=== PATIENT | female | born 1985 | race Two or more races ===

== ENCOUNTER 2022-09-21 09:22 | Observation (INO) | payer BC, OTHER ==
[~2022-09-21] VITALS: Ht 149 cm; Wt 59.9 kg
[2022-09-21 10:12] LABS: Basophils # (auto) 0 10 ^3/uL (0-0.2); Eosinophils # (auto) 0.2 10 ^3/uL (0-0.8); Hematocrit 32.6 % (36.0-46.0); Lymphocytes # (auto) 1.4 10 ^3/uL (0.4-5.4); Neutrophils # (auto) 4.6 10 ^3/uL (1.6-8.6); Red Blood Cells 4.11 10^6/uL (4.0-5.20)
[2022-09-21 10:15] LABS: Basophils % (auto) 0.4 % (0.0-2.0); Hemoglobin 10.5 g/dL (12.2-16.2); Lymphocytes % (auto) 21.2 % (10.0-50.0); Mean Corpuscular Hemoglobin 25.6 pg (28.0-32.0); Mean Corpuscular Hgb Conc. 32.2 g/dL (32.0-36.0); Mean Corpuscular Volume 79.3 fL (80.0-100.0); Monocytes # (auto) 0.4 10 ^3/uL (0-1.3); Monocytes % (auto) 5.6 % (0.0-12.0); Neutrophils % (auto) 69.8 % (37.0-80.0); Nucleated Red Blood Cells % 0.1 %; Red Cell Distribution Width 15.1 % (11.8-14.3); White Blood Cell 6.5 10^3/uL (4.4-10.8)
[2022-09-21 10:39] LABS: INR 0.83 (0.9-1.15); Partial Thromboplastin Time 25.2 sec (24.6-33.4); Potassium 3.5 mmol/L (3.5-5.1)
[2022-09-21 10:46] LABS: Albumin 2.6 g/dL (3.4-5.0); BUN/Creatinine Ratio 17.8; Bilirubin, Total 0.4 mg/dL (0.2-1.0); Calcium 8.4 mg/dL (8.5-10.1); Total Protein 7.1 g/dL (6.4-8.2); Uric Acid 3.6 mg/dL (2.6-6.0)
[2022-09-21 11:18] LABS: Urine Bacteria NONE SEEN /hpf (None Seen); Urine Blood Negative /uL (Negative); Urine Hyaline Cast FEW /lpf (0 - 2); Urine Specific Gravity 1.017 (1.001-1.035); Urine WBC 6 /hpf (0 - 5)
[2022-09-21] MEDS ORDERED: CEPH-322 PO (12:00)
[2022-09-21] MEDS ORDERED: PREN-96 PO (12:11)
== END 2022-09-21 12:40 | disposition home or self-care (01) ==
LOC: LDRP 09:22 → UNDOADMOB 09:22 → LDRP 09:48
PROVIDERS: ADMIT Obstetrics & Gynecology; ATTEND Obstetrics & Gynecology
DX: O26.613 Liver and biliary tract disorders in pregnancy, third trimester (principal); K83.1 Obstruction of bile duct; O62.9 Abnormality of forces of labor, unspecified; Z3A.34 34 weeks gestation of pregnancy
CPT/HCPCS: 36415; 59025; 76818; 80053; 81001; 81002; 82570; 84156; 84550; 85025; 85610; 85730; 94760; G0378

== ENCOUNTER 2022-09-24 09:48 | Observation (INO) | payer BC ==
[~2022-09-24] VITALS: Ht 149 cm; Wt 59.9 kg
[~2022-09-24 09:48] MED LIST: CEPH-322 PO; PREN-96 PO
[2022-09-24] MEDS ORDERED: URSOPOW XX (16:00)
== END 2022-09-24 16:54 | disposition home or self-care (01) ==
LOC: UNDOADMOB 14:45 → LDRP 14:45 → UNDODISOB 16:54
PROVIDERS: ADMIT Obstetrics & Gynecology; ATTEND Obstetrics & Gynecology
DX: O62.9 Abnormality of forces of labor, unspecified (principal); O26.893 Other specified pregnancy related conditions, third trimester; N89.8 Other specified noninflammatory disorders of vagina; Z3A.34 34 weeks gestation of pregnancy
CPT/HCPCS: 59025; 76818; 81002; 94760

== ENCOUNTER 2022-09-27 08:24 | Observation (INO) | payer BC ==
[~2022-09-27 08:24] MED LIST changes: +URSOPOW XX
== END 2022-09-27 16:32 | disposition home or self-care (01) ==
LOC: LDRP 15:30 → UNDOADMOB 15:32 → LDRP 15:32
PROVIDERS: ADMIT Obstetrics & Gynecology; ATTEND Obstetrics & Gynecology
DX: O26.613 Liver and biliary tract disorders in pregnancy, third trimester (principal); K83.1 Obstruction of bile duct; O62.9 Abnormality of forces of labor, unspecified; Z3A.34 34 weeks gestation of pregnancy
CPT/HCPCS: 59025; 76818; 81002; 94760; G0378

== ENCOUNTER 2022-10-04 14:14 | Observation (INO) | payer BC | END 2022-10-04 17:05 | disposition home or self-care (01) | LOC: UNDOADMOB 15:28 → LDRP 15:28 | PROVIDERS: ADMIT Obstetrics & Gynecology; ATTEND Obstetrics & Gynecology | DX: O26.613 Liver and biliary tract disorders in pregnancy, third trimester (principal); K83.1 Obstruction of bile duct; O99.891 Other specified diseases and conditions complicating pregnancy; M54.9 Dorsalgia, unspecified; O26.893 Other specified pregnancy related conditions, third trimester; R42 Dizziness and giddiness; Z3A.36 36 weeks gestation of pregnancy | CPT/HCPCS: 59025; 76818; 81002; 94760; G0378 ==

== ENCOUNTER 2022-10-11 06:45 | Inpatient (IN) | payer BC ==
[~2022-10-11] VITALS: Ht 154.9 cm; Wt 61.7 kg
[2022-10-11] MEDS ORDERED: PROMETHAZINE HCL 25 MG/ML 1ML IV PRN (07:15)
[2022-10-11] MEDS ORDERED: LACT. RINGERS/OXYTOCIN 20UNITS 500 ML IV ONE ×2 (07:15→07:45)
[2022-10-11] MEDS ORDERED: MORPHINE SULFATE INJ 2 MG/ml SYRG IV PRN (07:15)
[2022-10-11] MEDS ORDERED: PHISODERM TOP SOLN 240ML BTL TOP PRN (07:15)
[2022-10-11] MEDS ORDERED: WITCH HAZEL-GLYCERIN PAD TOP PRN (07:15)
[2022-10-11] MEDS ORDERED: PENICILLIN G POT 5MIL/D5 50ML 50 ML IV ONE (07:15)
[2022-10-11] MEDS ORDERED: LIDOCAINE 2%HCL (LOCAL ANESTH.) INJ 20ML MDV IJ PRN (07:15)
[2022-10-11] MEDS ORDERED: BUTORPHANOL TARTRATE 2 MG/1 ML VIAL IV PRN ×2 (07:15)
[2022-10-11] MEDS ORDERED: miSOPROStol 50 MCG per PRE-CUT 1/2 TAB PO PRN (07:15)
[2022-10-11] MEDS ORDERED: NITROGLYCERIN 0.4 MG SL TAB SL PRN (07:15)
[2022-10-11] MEDS ORDERED: LACTATED RINGER'S 1,000 ML IV SCH (07:15)
[2022-10-11] MEDS ORDERED: DERMOPLAST 60ML BOTTLE TOP PRN (07:15)
[2022-10-11 07:26] LABS: Basophils # (auto) 0 10 ^3/uL (0-0.2); Lymphocytes # (auto) 1.9 10 ^3/uL (0.4-5.4); Monocytes # (auto) 0.4 10 ^3/uL (0-1.3); Neutrophils # (auto) 5.1 10 ^3/uL (1.6-8.6); Neutrophils % (auto) 68.7 % (37.0-80.0); Nucleated Red Blood Cells % 0.2 %
[2022-10-11 07:27] LABS: Basophils % (auto) 0.2 % (0.0-2.0); Eosinophils # (auto) 0 10 ^3/uL (0-0.8); Eosinophils % (auto) 0.5 % (0.0-7.0); Hematocrit 29.9 % (36.0-46.0); Hemoglobin 9.9 g/dL (12.2-16.2); Lymphocytes % (auto) 25.5 % (10.0-50.0); Mean Corpuscular Volume 78.6 fL (80.0-100.0); Monocytes % (auto) 5.1 % (0.0-12.0); Red Cell Distribution Width 15.5 % (11.8-14.3); White Blood Cell 7.4 10^3/uL (4.4-10.8)
[2022-10-11 07:45] LABS: INR 0.82 (0.9-1.15); Partial Thromboplastin Time 25.9 sec (24.6-33.4)
[2022-10-11 07:52] LABS: Albumin 2.4 g/dL (3.4-5.0); Calcium 8.5 mg/dL (8.5-10.1); Potassium 3.7 mmol/L (3.5-5.1)
[2022-10-11 07:55] LABS: BUN/Creatinine Ratio 19.6 (10.0-20.0); Bilirubin, Total 0.2 mg/dL (0.2-1.0); Total Protein 7.1 g/dL (6.4-8.2)
[2022-10-11 08:06] LABS: Urine Bacteria NONE SEEN /hpf (None Seen); Urine Blood Negative /uL (Negative); Urine Hyaline Cast FEW /lpf (0 - 2); Urine Specific Gravity 1.018 (1.001-1.035); Urine WBC 2 /hpf (0 - 5)
[2022-10-11] MEDS ORDERED: ROPIVACAINE HCL 200 ML EPI SCH (08:30)
[2022-10-11] MEDS ORDERED: LACTATED RINGER'S 500 ML IV ONE (08:30)
[2022-10-11] MEDS ORDERED: NALOXONE HCL 0.4 MG/ML VIAL IV ONE (08:30)
[2022-10-11] MEDS ORDERED: ePHEDrine SULFATE 50 MG/ML AMP IV ONE (08:30)
[2022-10-11 08:45] LABS: Alcohol, Urine < 3.0 mg/dL (0-10); Amphetamine Screen, Urine NEGATIVE (NEGATIVE); Barbiturate Scree,Urine NEGATIVE (NEGATIVE); Benzodiazephine Screen, Urine NEGATIVE (NEGATIVE); Cannabinoid Screen, Urine NEGATIVE (NEGATIVE); Cocaine Screen, Urine NEGATIVE (NEGATIVE); Opiate Scree,Urine NEGATIVE (NEGATIVE); Phencyclidine Screen, Urine NEGATIVE (NEGATIVE)
[2022-10-11] MEDS ORDERED: Lidocaine W-Epinephrine 1.5%-1:200,000 INJ 10ml Vial ONE (09:04)
[2022-10-11] MEDS ORDERED: TRANEXAMIC ACID 1,000 MG in SODIUM CHL 0.9% 100 ML IV ONE (10:45)
[2022-10-11] MEDS ORDERED: CARBOPROST TROMETHAMINE 250 MCG/1ML VIAL IM PRN (10:45)
[2022-10-11] MEDS ORDERED: METHYLERGONOVINE MALEATE 0.2 MG/ML AMP IM PRN (10:45)
[2022-10-11] MEDS ORDERED: miSOPROStol 100 mcg TAB SL PRN (11:00)
[2022-10-11] MEDS ORDERED: LACT. RINGERS/OXYTOCIN 20UNITS 1,000 ML IV SCH (11:00)
[2022-10-11] MEDS ORDERED: TERBUTALINE SULFATE 1 MG/ML 1ML VIAL SC PRN (11:00)
[2022-10-11] MEDS ORDERED: PENICILLIN G POTASSIUM 2,500,000 UNITS in D5W 5% 50 ML IV SCH (11:15)
[2022-10-11] MEDS ORDERED: diphenhdrAMINE HCL 50 MG/1 ML VL IV PRN (13:00)
[2022-10-11] MEDS ORDERED: ONDANSETRON ODT 4 MG TAB PO PRN (15:30)
[2022-10-11] MEDS ORDERED: ONDANSETRON HCL 4 MG/2 ML VIAL IV PRN (15:45)
[2022-10-11] MEDS: IBUPROFEN 600 MG TAB PO PRN (16:03)
[2022-10-11 18:00] VITALS: BP 106/53
[2022-10-11 19:00] VITALS: BP 99/50
[2022-10-11] MEDS ORDERED: TETANUS-DIPTH-ACEL PERTUSSIS 0.5ML SYR Tdap IM ONE (19:45)
[2022-10-11] MEDS: ACETAMINOPHEN 325 MG TAB PO PRN (20:30)
[2022-10-11] MEDS ORDERED: DOCUSATE SOD 100 MG CAP PO SCH (22:00)
[2022-10-11] MEDS ORDERED: DIPHENOXYLATE W/ATROPINE 2.5 MG TAB PO SCH (22:00)
[2022-10-11 23:21] VITALS: BP 100/50
[2022-10-12 02:50] VITALS: BP 96/51
[2022-10-12] MEDS: IBUPROFEN 600 MG TAB PO PRN ×3 (02:53→14:59)
[2022-10-12 06:20] VITALS: BP 96/47
[2022-10-12 06:31] VITALS: BP 97/57
[2022-10-12] MEDS: ACETAMINOPHEN 325 MG TAB PO PRN ×2 (06:47→10:49)
[2022-10-12 08:06] LABS: RPR Non Reactive (Non Reactive)
[2022-10-12 11:21] VITALS: BP 96/50
[2022-10-12 15:08] VITALS: BP 97/51
[2022-10-12 17:17] VITALS: BP 97/56
== END 2022-10-12 17:17 | disposition home or self-care (01) | DRG 805 ==
LOC: LDRP 06:45 → EDSTATUS 06:54
PROVIDERS: ADMIT Obstetrics & Gynecology; ATTEND Obstetrics & Gynecology
PROC: 10E0XZZ Delivery of Products of Conception, External Approach (ICD-10-PCS; principal; 2022-10-11)
PROC: 0KQM0ZZ Repair Perineum Muscle, Open Approach (ICD-10-PCS; 2022-10-11)
PROC: 3E0P7VZ Introduction of Hormone into Female Reproductive, Via Natural or Artificial Opening (ICD-10-PCS; 2022-10-11)
PROC: 10907ZC Drainage of Amniotic Fluid, Therapeutic from Products of Conception, Via Natural or Artificial Opening (ICD-10-PCS; 2022-10-11)
PROC: 3E0R3BZ Introduction of Anesthetic Agent into Spinal Canal, Percutaneous Approach (ICD-10-PCS; 2022-10-11)
PROC: 00HU33Z Insertion of Infusion Device into Spinal Canal, Percutaneous Approach (ICD-10-PCS; 2022-10-11)
PROC: 3E0234Z Introduction of Serum, Toxoid and Vaccine into Muscle, Percutaneous Approach (ICD-10-PCS; 2022-10-12)
DX: O26.62 Liver and biliary tract disorders in childbirth (principal); K83.1 Obstruction of bile duct; Z37.0 Single live birth; O60.23X0 Term delivery with preterm labor, third trimester, not applicable or unspecified; O69.81X0 Labor and delivery complicated by cord around neck, without compression, not applicable or unspecified; Z3A.37 37 weeks gestation of pregnancy; O70.1 Second degree perineal laceration during delivery; Z20.822 Contact with and (suspected) exposure to COVID-19; Z23 Encounter for immunization
CPT/HCPCS: 36415; 59025; 59409; 62282; 80053; 80307; 81001; 81002; 85025; 85610; 85730; 86592; 86850; 86900; 86901; 87426; 90715; 94760; 96360; 96361; 96365; 96366; 96372; G0378; J2405; J2540; J2590; J7060